=== PATIENT | male | born 1990 | race African-American/Black ===

== ENCOUNTER 2019-02-26 21:49 | Emergency (ER) | payer OTHER ==
[~2019-02-26] VITALS: Ht 188 cm; Wt 90.7 kg
[~2019-02-26 21:49] MED LIST: NYQUIL D COLD295 ML PO; TESSALON200 MG PO; ZANTAC 150MG T150 MG PO; ZPAK PO
[2019-02-26 22:12] VITALS: BP 130/90
== END 2019-02-26 23:23 | disposition home or self-care (01) ==
LOC: ER 21:49
DX: M54.12 Radiculopathy, cervical region (principal); Z87.891 Personal history of nicotine dependence; V89.2XXA Person injured in unspecified motor-vehicle accident, traffic, initial encounter; Y92.89 Other specified places as the place of occurrence of the external cause; Y93.89 Activity, other specified; Y99.8 Other external cause status

== ENCOUNTER 2019-06-19 09:17 | Emergency (ER) | payer OTHER ==
[~2019-06-19] VITALS: Ht 182.9 cm; Wt 90.7 kg
[2019-06-19] MEDS ORDERED: ERYTHROMYCIN E3.5 G3 OPHTHALMIC (09:41)
[2019-06-19 10:03] VITALS: BP 118/74
== END 2019-06-19 10:03 | disposition home or self-care (01) ==
LOC: ER 09:17
DX: H01.005 Unspecified blepharitis left lower eyelid (principal); Z87.891 Personal history of nicotine dependence

== ENCOUNTER 2019-10-03 00:39 | Emergency (ER) | payer OTHER ==
[~2019-10-03] VITALS: Ht 182.9 cm; Wt 90.7 kg
[~2019-10-03 00:39] MED LIST changes: +ERYTHROMYCIN E3.5 G3 OPHTHALMIC
[2019-10-03] MEDS ORDERED: VENTOLIN HFA 1818 GM INH (01:50)
[2019-10-03 01:58] VITALS: BP 127/75
== END 2019-10-03 02:04 | disposition home or self-care (01) ==
LOC: ER 00:39
DX: J06.9 Acute upper respiratory infection, unspecified (principal); Z79.2 Long term (current) use of antibiotics; Z87.891 Personal history of nicotine dependence

== ENCOUNTER 2020-06-19 11:15 | Emergency (ER) | payer OTHER ==
[~2020-06-19] VITALS: Ht 188 cm; Wt 90.7 kg
[~2020-06-19 11:15] MED LIST changes: +VENTOLIN HFA 1818 GM INH
[2020-06-19 11:17] VITALS: BP 121/81
[2020-06-19] MEDS ORDERED: PROAIR HFA8.5 GM INH (12:03)
== END 2020-06-19 12:11 | disposition home or self-care (01) ==
LOC: ER 11:15
DX: U07.1 COVID-19 (principal); Z79.899 Other long term (current) drug therapy; Z87.891 Personal history of nicotine dependence

== ENCOUNTER 2020-11-17 10:07 | Emergency (ER) | payer OTHER ==
[~2020-11-17] VITALS: Ht 182.9 cm; Wt 90.7 kg
[~2020-11-17 10:07] MED LIST changes: +PROAIR HFA8.5 GM INH
[2020-11-17 10:18] VITALS: BP 121/73
[2020-11-17] MEDS ORDERED: IBU600 MG PO (10:52)
[2020-11-17] MEDS ORDERED: FLEXERIL PO (10:52)
== END 2020-11-17 11:05 | disposition home or self-care (01) ==
LOC: ER 10:07
DX: S39.012A Strain of muscle, fascia and tendon of lower back, initial encounter (principal); Z79.899 Other long term (current) drug therapy; Z87.891 Personal history of nicotine dependence; V49.9XXA Car occupant (driver) (passenger) injured in unspecified traffic accident, initial encounter; Y93.89 Activity, other specified; Y92.89 Other specified places as the place of occurrence of the external cause; Y99.8 Other external cause status

== ENCOUNTER 2020-12-22 10:43 | Emergency (ER) | payer OTHER ==
[~2020-12-22] VITALS: Ht 188 cm; Wt 90.7 kg
[~2020-12-22 10:43] MED LIST changes: +FLEXERIL PO; +IBU600 MG PO
[2020-12-22 11:26] LABS: URINE BILIRUBIN NEGATIVE (Negative); URINE BLOOD TRACE (Negative); URINE CLARITY CLEAR; URINE COLOR YELLOW; URINE GLUCOSE-RANDOM* NEGATIVE (Negative); URINE KETONES NEGATIVE (Negative); URINE LEUKOCYTES-REFLEX 3+ (Negative); URINE NITRITE-REFLEX NEGATIVE (Negative); URINE PROTEIN (DIPSTICK) NEGATIVE (Negative)
[2020-12-22 11:39] LABS: ABSOLUTE NEUTROPHILS 2.2 thou/uL (1.4-8.2); BASOPHILS 0.7 % (0.0-2.0); EOSINOPHILS 3.5 % (0.0-3.0); HEMATOCRIT 42.4 % (42.0-52.0); HEMOGLOBIN 13.4 gm/dL (14.0-18.0); MCH 22.3 pg (26.0-34.0); MCHC 31.6 g/dL (28.0-37.0); MCV 70.5 fL (80.0-100.0); MONOCYTES 9.4 % (1.0-8.0); PLATELET COUNT 145 thou/uL (150-400); POLYS 51.4 % (36.0-66.0); RBC 6.02 mil/uL (4.50-6.00); RDW 14.5 % (10.5-14.5); WBC 4.3 thou/uL (4.0-11.0)
[2020-12-22 11:48] LABS: CASTS None Seen /LPF (None Seen); CRYSTALS None Seen /LPF (None Seen); SQUAMOUS 0-3 Few /LPF (0-3)
[2020-12-22 11:49] LABS: BACTERIA-REFLEX 1-9 Few /HPF (None Seen); MUCUS 0-3 Light strn/LPF (None Seen); URINE RBC 1-2 Rare /HPF (NONE SEEN); URINE WBC-REFLEX 0-5 Rare /HPF (0-5)
[2020-12-22] MEDS ORDERED: CEPHALEXIN500 MG PO (12:49)
[2020-12-22 13:01] LABS: CALCIUM 9.3 mg/dL (8.5-10.1); POTASSIUM 4.4 mmol/L (3.5-5.1)
[2020-12-22 13:08] LABS: ALBUMIN 4.3 g/dL (3.4-5.0); TOTAL BILIRUBIN 0.8 mg/dL (0.2-1.0)
[2020-12-22 13:13] VITALS: BP 117/81
[2020-12-22 13:15] LABS: HYPOCHROMASIA 1+; MICROCYTES 1+
== END 2020-12-22 13:13 | disposition home or self-care (01) ==
LOC: ER 10:43
PROVIDERS: Nurse Practitioner
DX: R10.32 Left lower quadrant pain (principal); Z87.891 Personal history of nicotine dependence

== ENCOUNTER 2021-02-08 12:36 | Emergency (ER) | payer OTHER ==
[~2021-02-08] VITALS: Ht 188 cm; Wt 86.2 kg
[~2021-02-08 12:36] MED LIST changes: +CEPHALEXIN500 MG PO
[2021-02-08 12:37] VITALS: BP 108/71
[2021-02-08] MEDS ORDERED: VALTREX1000 MG PO (13:44)
== END 2021-02-08 14:02 | disposition home or self-care (01) ==
LOC: ER 12:36
DX: B02.8 Zoster with other complications (principal); Z79.1 Long term (current) use of non-steroidal anti-inflammatories (NSAID); Z79.51 Long term (current) use of inhaled steroids; Z79.899 Other long term (current) drug therapy; Z87.891 Personal history of nicotine dependence

== ENCOUNTER 2021-08-02 16:32 | Emergency (ER) | payer OTHER ==
[~2021-08-02] VITALS: Ht 188 cm; Wt 90.7 kg
[~2021-08-02 16:32] MED LIST changes: +VALTREX1000 MG PO
[2021-08-02 16:34] VITALS: BP 106/79
== END 2021-08-02 17:27 | disposition home or self-care (01) ==
LOC: ER 16:32
DX: J06.9 Acute upper respiratory infection, unspecified (principal); Z20.822 Contact with and (suspected) exposure to COVID-19; B97.4 Respiratory syncytial virus as the cause of diseases classified elsewhere; Z87.891 Personal history of nicotine dependence

== ENCOUNTER 2021-08-05 21:51 | Emergency (ER) | payer OTHER ==
[~2021-08-05] VITALS: Ht 188 cm; Wt 90.7 kg
[2021-08-05 22:03] VITALS: BP 132/86
--- NOTE | 2021-08-06 10:57 | EKG ---
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
== END 2021-08-05 23:23 | disposition home or self-care (01) ==
LOC: ER 21:51
PROVIDERS: Emergency Medicine
DX: U07.1 COVID-19 (principal); Z87.891 Personal history of nicotine dependence